=== PATIENT | male | born 1945 | race Caucasian/White ===

== ENCOUNTER → 2016-08-15 | Outpatient (CLI) | payer MEDICARE, OTHER ==
[~2016-08-15] MED LIST: GABA300C5 PO; GABA400C5 PO; HYDR-3583 PO; LORA-373 PO; LORA1TAB12 PO; LORA2TAB7 PO; TRAD5TAB PO; TRAZ100T4 PO
== END ==
LOC: CPRE 09:09
PROVIDERS: ATTEND Neurological Surgery
DX: Z01.810 Encounter for preprocedural cardiovascular examination (principal); Z01.811 Encounter for preprocedural respiratory examination; Z01.812 Encounter for preprocedural laboratory examination

== ENCOUNTER 2016-08-19 15:08 | Inpatient (IN) | payer OTHER, MEDICARE ==
[~2016-08-19] VITALS: Ht 175.3 cm; Wt 73.9 kg
[~2016-08-19 15:08] MED LIST changes: -GABA400C5 PO; -LORA1TAB12 PO; -LORA2TAB7 PO
[2016-08-20] MEDS ORDERED: METOPROLOL TARTRATE 25 MG TAB PO PRN (06:45)
[2016-08-20] MEDS ORDERED: LACTATED RINGER'S 1000 ML IV SCH (06:45)
[2016-08-20] MEDS ORDERED: SODIUM CHLORID 0.9% 500 ML IV SCH (06:45)
[2016-08-20] MEDS ORDERED: INSULIN HUMAN REGULAR 1,000 UNITS/10 ML VIAL SQ PRN (06:45)
[2016-08-20 07:01] VITALS: BP 147/71; PULSE 63; RESP 20; TEMP 98.3; O2SAT 93
[2016-08-20] MEDS ORDERED: GABA400C5 PO (07:16)
[2016-08-20] MEDS ORDERED: LORA2TAB7 PO (07:16)
[2016-08-20] MEDS ORDERED: LORA1TAB12 PO (07:16)
[2016-08-20] MEDS ORDERED: GENTAMICIN SULFATE 80 MG/2 ML VIAL ONE (07:25)
[2016-08-20] MEDS ORDERED: GELFOAM SIZE 100 ONE (07:25)
[2016-08-20] MEDS ORDERED: THROMBIN (TOPICAL) 5,000 UNIT VIAL ONE (07:25)
[2016-08-20] MEDS ORDERED: ARTIFICIAL TEARS OPTH OINT 3.5 APPLIC/3.5 GM TUBO ONE (08:06)
[2016-08-20] MEDS ORDERED: fentaNYL CITRATE 250 MCG/5 ML AMP ONE ×2 (08:06→13:11)
[2016-08-20] MEDS ORDERED: FAMOTIDINE 20 MG/2 ML VIAL ONE (08:06)
[2016-08-20] MEDS ORDERED: MIDAZOLAM HCL 2 MG/2 ML VIAL ONE (08:06)
[2016-08-20] MEDS ORDERED: ACETAMINOPHEN 1000 MG/100 ML VIAL IV ONE (08:06)
[2016-08-20] MEDS ORDERED: HEPARIN SODIUM - SQ 10,000 UNITS/ML VIAL ONE (08:37)
[2016-08-20] MEDS ORDERED: VANCOMYCIN HCL 1000 MG VIAL ONE (08:37)
[2016-08-20] MEDS ORDERED: ceFAZolin 2 GM PREMIX 50 ML ONE (08:38)
[2016-08-20] MEDS ORDERED: ePHEDrine/NS 25 MG/5 ML SYR IV ONE (11:31)
[2016-08-20] MEDS ORDERED: LACTATED RINGER'S 1000 ML INJ 1,000 ML IV ONE (11:31)
[2016-08-20] MEDS ORDERED: SODIUM CHLOR 0.9% 250 ML INJ 250 ML IV ONE (11:31)
[2016-08-20] MEDS ORDERED: SODIUM CHLORID 0.9% 500 ML INJ 500 ML IV ONE (11:31)
[2016-08-20] MEDS ORDERED: PROPOFOL 200 MG/20 ML AMP IV ONE (11:31)
[2016-08-20] MEDS ORDERED: ONDANSETRON HCL 4 MG/2 ML VIAL IV PUSH ONE (11:31)
[2016-08-20] MEDS ORDERED: NALOXONE HCL 0.4 MG/ML AMP IV PRN (12:45)
[2016-08-20] MEDS ORDERED: SODIUM CHLORIDE 0.9% FLUSH 5 ML FLUSH IVF PRN (12:45)
[2016-08-20] MEDS ORDERED: diphenhydrAMINE HCL 50 MG/ML VIAL IV PRN (12:45)
[2016-08-20] MEDS ORDERED: HYDROmorphone HCL PCA 6 MG/30 ML IV SCH (12:45)
[2016-08-20] MEDS ORDERED: MORPHINE SULFATE 4 MG/ML INJ IV PUSH PRN ×2 (12:45)
[2016-08-20] MEDS ORDERED: ACETAMINOPHEN 325 MG TAB PO PRN (12:45)
[2016-08-20] MEDS ORDERED: DO NOT ADM ANY ANTICOAGULANT DRUGS XX PRN (12:53)
--- NOTE | 2016-08-20 12:57 | PD.OP ---
Operative Report Date of Surgery: Aug 20, 2016 Preoperative Diagnosis: Spondyllisthesis L3-4 Postoperative Diagnosis: Spondyllisthesis L3-4 Procedure: L3-4 laminectomy, interbody arthrodhesis using PEEK cage and autologous bone graft, L3-L4 instrumental fixation using transpedicular screws and rods, L3-L4 posterolateral fusion using autologous bone graft and demineralized bone matrix. Microsurgical dissection Anesthesia: general Surgeon: Brian Mccormick Book Or Script Editor(s): Tiffany Onofre Operation and Findings: INDICATIONS FOR THE SURGICAL PROCEDURE Mr. Shah is a 70 year-old male with history of a prior L4-5 and L5-S1 fusion who presented with intractable mechanical back pain and robe evidence of lower extremity radiculopathy. He developed degeneration with severe facet arthropathyu and spondylolisthesis at L3-4, adjacent to his prior fusion. He failed maximum nonsurgical management including multiple modalities of conservative treatment as well as pain management interventions by an interventional pain specialist. A surgical decompression and arthrodhesis were indicated as a last resort The [id number] details of the procedure, indications, alternatives, risks and potential complications were fully discussed with the patient. The patient fully understood. All the questions were answered. No guarantees were given. The patient voiced requesting the procedure and provided informed consents. The patient was offered the alternative of delaying the procedure and continuing with nonsurgical management. DETAILS OF THE SURGICAL PROCEDURE Prior to the procedure, the surgical incision was marked in the preoperative surgical holding room, and the procedure, risks, and potential complications revisited with the patient. Placement of electrodes for intraoperative neurophysiological monitoring was completed. The patient was taken to the operative room, and following induction of general anesthesia, endotracheal intubation was performed. A Tripathi catheter, bilateral LISA hose and sequential compression devices were placed and kept throughout the procedure. The patient was positioned prone, over a Wolfgang table over a bolsters. All pressure in the preoperative surgical holding room points were carefully padded with eggcrate and gel mattress. The eyes were tapped shut after ointment was applied by the anesthesiologist to prevent corneal abrasion. A Alisson hugger was placed over the expossed lower body to maintain control of the core body temperature. The electrophysiological team placed the needles and electrodes in their proper location and baseline SSEP's and EMG potentials were registered. The entrance to each pedicles was marked using a C arm. The lumbar region was prepped and draped in the usual sterile fashion. The surgical procedure was performed in several steps as follow: SURGICAL APPROACH Once the patient was positioned, a localizing cross-table lateral x-ray was performed with a C-arm. Two paramedian small incisions were outlined on the skin approximately 3cm from the midline. The skin incisions were made with a # 10 blade. Small bleeders were controlled with the cautery. The dissection was then carried out into deeper planes and through the thoracolumbar fascia with a Bovie. The intermuscular septum was identified and the muscles were blunted dissected along the septum. The facets and transverse process of L3 and L4 were exposed and the proper anatomical landmarks were identified. A microsurgical self-retaining retractor was placed on the incision, and a localizing lateralizing cross-table x-ray was performed with an instrument underneath a lamina of the lumbar spine. INSTRUMENTAL FIXATION At this point in the procedure, placement of bilateral transpedicular screws was necessary for stabilization of the spine. Initially, the entry point for the screw was selected anatomically at the junction of the facet, with the transverse process, and the pars interarticularis at L3 and L4. This was started using a Giamshetti needle followed by the use of a meyers wire. A tap was used to create the threads for the screws. Finally bilateral transpedicular screws were carefully placed bilaterally at L3 and L4 under fluoroscopic visualization. An appropriate purchase was achieved with all screws. The position of each screw was assessed anatomically with an AP, lateral, oblique Xrays. An intraoperative scan view of the spine was then performed using the iso -centric c-arm. Each screw was then assessed electrophysiologically stimulating each screw with a nerve stimulator. SURGICAL DECOMPRESSION There was significant mass effect with compression of the neural structures. In order to relieve neural compression, it was necessary to perform a decompressive laminectomy, with decompression of the spinal canal and bilateral lateral recesses. Note that the scope of such decompression was significantly more extensive than the minimal exposure necessary to perform an interbody fusion, as there was extreme facet arthropathy with near complete collapse of the disk spaces and severe stenosis cause by the hyperthrophic joint facets. At this point of the procedure the operative microscope was draped in the usual sterile fashion and brought to the field. The rest of the surgical procedure was performed using microdissection technique with the exception of the closure. Under the operating microscope, a decompressive laminectomy was carried out at L3-L4 as follow: The laminae, base of the spinous processes and facets were carefully drilled exposing the ligamentum flavum. The facets were abnormal with severe spondylolisthesis and gross mechanical instability. A disk protusion was compressing the neural structures and exiting nerve roots. A near complete facetectomy was necessary resulting in further instability. The ligamentum flavum appeared hypertrophic. The superior free border of the ligamentum flavum was elevated with a ligament dissector and the ligamentum flavum was removed with a 3 and 4 mm Kerrison forceps. The ligament was very adherent to the dural sac and during the dissection, and extreme care was taken during the dissection. The exiting nerve roots were identified, and a wide foraminotomy was performed with a Kerrison in their trajectory towards the neural foramen. Epidural veins located laterally to the dural sac were coagulated with the bipolar cautery, and then incised using microscissors. Gentle medial retraction of the dural sac allowed me to expose the disc space for the discectomy. Upon completion of the discectomy, an excellent decompression of the neural structures was achieved. Increased motion was noted , which was consistent with mechanical instability. INTERBODY ARTHRODHESIS In order to correct the narrowing of the disk space and maintain distraction of the space, and to achieve a solid interbody fusion, it was necessary the insertion of an interbody device into the disk space. Otherwise, the disk space would collapse, compromising the result of the surgical procedure. At this point of the procedure, the annulus fibrosus of the disk was carefully coagulated with a bipolar cautery and incised using an 11 bladed knife. Then, a microdiscectomy was carried out in a standard fashion using a combination of straight and up-biting pituitary forceps. A reverse angle curette was applied underneath the posterior longitudinal ligament, and used to push the disk fragments into the disk space, so they can be safely removed with a pituitary forceps. Once the discectomy was completed, it was necessary to decorticate the endplates, in order to eliminate the cartilaginous endplate and to expose healthy bone appropriate to perform the interbody fusion. The endplates at L3- L4 were then thoroughly decorticated using increasing size bone ronnie and ring curets, eliminating the cartilaginous fragments from both, the superior and inferior endplates. A disk space distractor was applied to the pedicle screws and gentle distraction was applied. This maneuver was assisted by the use of a disk distractor. Once a thorough preparation of the disk space was achieved, the disk space was irrigated with antibiotic solution, and the interbody fusion was performed by carefully impacting an expandable PPEK cage filled with autologous iliac crest bone graft. The cage was carefully expanded. A solid position of the cage with good purchase was achieved. The position of the cage was assessed anatomically with a probe and radiologically with the C- arm. POSTEROLATERAL FUSION The posterolateral fusion is a critical component to the procedure, to prevent future fatigue and failure of the instrumental fixation. Initially, the transverse processes of the vertebral bodies, lateral surface of the facets and the lateral gutters of the spine were carefully cleaned, eliminating all soft tissue and muscle attachments. The area was then irrigated with a large amount of antibiotic solution. Subsequently, the transverse processes, lateral surface of the facets, and lateral gutters of the spine were thoroughly decorticated using the TPS drill with a 5mm cutting diego, exposing cancellous bone, in preparation for the posterolateral fusion. The incision was again irrigated with antibiotic solution. Then, the posterolateral fusion was then performed by carefully packing the lateral gutters of the spine at L3-L4 with autologous iliac crest bone combined with demineralized bone matrix. I packed as much bone as possible. COMPLETION OF THE INSTRUMENTATION AND CLOSURE The rods were brought to the field, applied to all the screws, and the screw caps were sequentially applied. Compression was performed between the pedicle screws, and final tightening of the screws was completed using a torque wrench. The incision was again thoroughly irrigated with several liters of antibiotic solution, and hemostasis secured with the bipolar cautery. A Valsalva Maneuver performed by the anesthesiologist failed to show any evidence of cerebrospinal fluid leak or bleeding. A 7 mm Wolfgang-Rondon drain was left in the epidural space and externalized through a separate stab incision. The incision was then closed in planes. 0 Vicryl was used in an interrupted fashion to close the thoracolumbar fascia and the superficial fascia. The subcutaneous tissue was then approximated using 3-0 Vicryl in an interrupted fashion. Special care was taken to avoid space. The skin was then closed with 4-0 Vicryl in a running, subcuticular fashion. Dermabond was applied to the skin. Each plane of closure was irrigated with antibiotic solution. At the end of the procedure the sponge, needle and instrument counts were all correct. Estimated blood loss was 100 to 150 cc. No blood transfusion was given. The entire procedure was performed using continuous electrophysiological monitoring of the somatosensorial evoked potentials and EMG. The patient received prophylactic antibiotics. The patient was then extubated and transferred to the recovery room in stable condition. Brian Mccormick MD Aug 20, 2016 12:57
[2016-08-20] MEDS ORDERED: GABAPENTIN 400 MG CAP PO SCH (13:00)
[2016-08-20] MEDS ORDERED: MORPHINE SULFATE 4 MG/ML INJ ONE (13:11)
[2016-08-20] MEDS ORDERED: *morphine SULFATE 8 MG/ML PERIprocedure ONLY ONE ×2 (13:13→14:06)
[2016-08-20] MEDS ORDERED: *MEPERIDINE 25 MG INJ VIAL PERIprocedural Use ONLY ONE (13:18)
[2016-08-20] MEDS: NS + KCL 20 MEQ INJ 1,000 ML IV SCH ×2 (13:35→20:49)
--- NOTE | 2016-08-20 13:35 | RADRPT ---
EXAM DATE/TIME: 08/20/2016 08:53 [facility] COMPARISON: No previous studies available for comparison. INDICATIONS : Stenosis, herniated disk, hardware placement, L3-4. MEDICAL HISTORY : Stenosis lumbar spine. SURGICAL HISTORY : L5-S1 fusion ENCOUNTER: Initial ACUITY: 1 day PAIN SCORE: 0/10 LOCATION: Lumbar spine. FINDINGS: 2 spot fluoroscopic images obtained in the operating room during a procedure demonstrate bilateral pe dicular screws and stabilization hardware at 2 adjacent levels in the inferior lumbar spine and may r epresent L3-L4 or L4-L5. Additionally, there is hardware posteriorly in the sacrum. CONCLUSION: Hardware is present following lumbosacral surgery. Please refer to intraoperative findings for furthe r details. Pato Carvalho MD on August 20, 2016 at 13:32 Board Certified Radiologist. This report was verified electronically.
[2016-08-20] MEDS: PCA - TOTAL MG DILAUDID DELIVERED PER SHIFT SCH ×2 (14:00→22:00)
[2016-08-20] MEDS: GABAPENTIN 300 MG CAP PO SCH ×2 (14:00→17:00)
[2016-08-20] MEDS ORDERED: *diphenhydrAMINE HCL 50 MG/ML VIAL PERIprocedural Use ONLY ONE (14:14)
--- NOTE | 2016-08-20 14:14 | PD.CONS ---
HPI Service [facility] Hospitalists Consult Requested By Dr. Brian Mccormick Reason for Consult Medical Management Primary Care Physician Dr. Vladimir Lucas Diagnoses: History of Present Illness Mr. Shah is a 70 y/o male with diabetes mellitus, CKD, stage 3, HTN, and chronic back pain with history of prior L4-5 and L5-S1 fusion who was admitted to [facility] by Dr. Mccormick for intractable mechanical back pain and evidence of lower extremity radiculopathy as he has developed degeneration with severe facet arthropathy and spondylolisthesis at L3-4, adjacent to his prior fusion. He failed outpt nonsurgical management and was admitted for surgical decompression and arthrodesis. Pt underwent L3-4 laminectomy and fusion on 08/20/16. [facility] Hospitalist team was consulted to help with managing his chronic medical issues. Pt is seen post-operatively in the PACU and is still quite lethargic. Nursing staff reports that he was in significant pain when he woke up from anesthesia and is currently on Dilaudid PHY THERAPIST. His vital signs are stable. Tripathi catheter is in place. Review of Systems ROS Limitations: Clinical Condition Past Family Social History Past Medical History Diabetes mellitus CKD stage 3 AAA Anxiety/Depression Lumbar disc disease with hx of previous L4-S1 fusion Hx of SCCA poorly differentiated in 02/2014 Hyperlipidemia Osteoarthritis ZARIA Past Surgical History L4-S1 Lumbar fusion RUL and RML lobectomies in 04/2014 Right hand surgery after snake bite Right inguinal hernia repair Reported Medications -Lorazepam 2 Mg PO HS -Lorazepam 1 Mg PO DAILY -Hydrocodone-Acetaminophen 10-325 mg Tab PO Q4H PRN --Gabapentin 800 Cap PO TID --Tradjenta 5 Mg PO DAILY --Trazodone 150 Mg PO HS ?Losartan 25mg PO DAILY ? 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 HEENT: Atraumatic. Normocephalic. No temporal or scalp tenderness. No scleral icterus. Airway patent. NECK: Trachea midline, supple, nontender. CARDIO: Regular. RESP: CTA bilaterally. No wheezes, rales, or rhonchi. ABD: +BS, soft, non-tender, nondistended. EXT: Extremities without clubbing, cyanosis, or edema. NEURO: Lethargic, arouses to name but quickly drifts back to sleep. Laboratory Laboratory Tests Test 08/20/16 06:50 Blood Type O POSITIVE Antibody Screen NEGATIVE Blood Bank Comment Imaging Last Impressions Lumbar Spine X-Ray 08/20/16 0000 Signed Impressions: Service Date/Time: Saturday, August 20, 2016 08:53 - CONCLUSION: Hardware is present following lumbosacral surgery. Please refer to intraoperative findings for further details. Pato Carvalho MD Assessment and Plan Problem List: (1) Spondylolisthesis, lumbar region Status: Chronic Plan: - Pt with chronic low back pain and lumbar spondylolisthesis and underwent L3- L4 laminectomy and fusion on 08/20/[address] Mccormick - Post-op pain control per Neurosurgery - IS - PT - Constipation precautions - DVT prophylaxis (2) Diabetes mellitus type 2, noninsulin dependent Status: Chronic Plan: - NovoLog SSI - Accu checks (3) HTN (hypertension) Status: Chronic Plan: - Pt takes Losartan 25mg po daily at home, this will be resumed - Clonidine PRN (4) COPD (chronic obstructive pulmonary disease) Status: Acute Plan: - Duonebs PRN (5) Hx of cancer of lung Status: Acute (6) Tobacco use Status: Acute Assessment and Plan Patient examined. Assessment and plan formulated with Amarilys Cevallos PA-C. I agree with the above. s/p L3/4 lami. will follow. in pacu now. pt lethargic from meds. monitor dm/htn. ssi for now. diet ordered. Amarilys Cevallos Aug 20, 2016 14:13 Nahid Tony MD Aug 20, 2016 16:40
[2016-08-20] MEDS ORDERED: cloNIDine HCL 0.1 MG TAB PO PRN (15:15)
[2016-08-20] MEDS ORDERED: RESP: ALBUTEROL 2.5 MG/IPRATROPIUM 0.5 MG NEB (PRN) NEB (15:30)
[2016-08-20] MEDS ORDERED: HYDR-3583 PO (15:38)
[2016-08-20] MEDS ORDERED: DEXTROSE 50% IN WATER 50 ML VIAL(D50) IV PUSH PRN (15:45)
[2016-08-20] MEDS ORDERED: GLUCAGON 1 MG/ML VIAL OTHER PRN (15:45)
[2016-08-20 16:07] VITALS: BP 143/78; PULSE 69; RESP 17; TEMP 97.7; O2SAT 96
[2016-08-20] MEDS: INSULIN ASPART SUPPLEMENTAL SCALE SQ SCH ×2 (16:59→20:53)
[2016-08-20] MEDS: ceFAZolin 2 GM PREMIX 50 ML IV SCH (17:00)
[2016-08-20 20:30] VITALS: O2SAT 94
[2016-08-20 20:35] VITALS: BP 137/60; PULSE 68; RESP 17; TEMP 97.6; O2SAT 93
[2016-08-20] MEDS: SODIUM CHLORIDE 0.9% FLUSH 5 ML FLUSH IVF SCH (20:48)
[2016-08-20] MEDS ORDERED: traZODone HCL 100 MG TAB PO SCH (21:00)
[2016-08-20] MEDS ORDERED: LORazepam 2 MG TAB PO SCH (21:00)
[2016-08-20 23:50] VITALS: BP 137/53; PULSE 82; RESP 18; TEMP 98.3; O2SAT 92
[2016-08-21] MEDS: ceFAZolin 2 GM PREMIX 50 ML IV SCH ×2 (01:47→08:10)
[2016-08-21] MEDS: ACETAMINOPHEN/HYDROcodone 325 MG/10 MG TAB PO PRN ×2 (02:55→08:12)
[2016-08-21 04:20] VITALS: BP 161/63; PULSE 77; RESP 18; TEMP 98; O2SAT 92
[2016-08-21] MEDS: INSULIN ASPART SUPPLEMENTAL SCALE SQ SCH ×2 (06:17→11:00)
[2016-08-21 06:55] LABS: AUTOMATED NEUTROPHIL # 11.7 TH/MM3 (1.8-7.7); BASOPHIL # 0.1 TH/MM3 (0-0.2); BASOPHIL % 0.4 % (0.0-2.0); HEMATOCRIT 35.2 % (39.0-51.0); HEMO FLAGS DIFF FINAL; LYMPH % 6.5 % (9.0-44.0); LYMPHOCYTE # 0.9 TH/MM3 (1.0-4.8); MEAN CORPUSCULAR HEMOGLOBIN 32.5 PG (27.0-34.0); MEAN CORPUSCULAR HGB CONC 33.2 % (32.0-36.0); MONO % 8.3 % (0.0-8.0); NEUT % 84.8 % (16.0-70.0); PLATELET COUNT 136 TH/MM3 (150-450); RED CELL DISTRIBUTION WIDTH 14.1 % (11.6-17.2); WHITE BLOOD COUNT 13.8 TH/MM3 (4.0-11.0)
[2016-08-21 07:10] LABS: BICARBONATE 28.7 MEQ/L (21.0-32.0); POTASSIUM 4.2 MEQ/L (3.5-5.1)
[2016-08-21 08:00] VITALS: BP 131/55; PULSE 68; RESP 16; TEMP 96.9; O2SAT 96
[2016-08-21] MEDS: GABAPENTIN 300 MG CAP PO SCH ×2 (08:11→13:22)
[2016-08-21] MEDS: NS + KCL 20 MEQ INJ 1,000 ML IV SCH (08:43)
[2016-08-21 08:59] VITALS: O2SAT 93
[2016-08-21] MEDS ORDERED: PANTOPRAZOLE SODIUM 40 MG VIAL IVP SCH (09:00)
[2016-08-21] MEDS ORDERED: LORazepam 1 MG TAB PO SCH (09:00)
[2016-08-21] MEDS: SODIUM CHLORIDE 0.9% FLUSH 5 ML FLUSH IVF SCH (09:00)
[2016-08-21] MEDS ORDERED: LOSARTAN 25 MG TAB PO SCH (09:00)
--- NOTE | 2016-08-21 10:41 | HHI.PR ---
Subjective Remarks pt eager for d/c today. says he need to take care of his 95yo mother. Objective Vitals heart reg lung cta abd s/nt ext no edema mcgee Vital Signs Date Time Temp Pulse Resp B/P Pulse Ox O2 Delivery O2 Flow Rate FiO2 08/21/16 08:59 93 Nasal Cannula 3.00 08/21/16 08:00 96.9 68 16 131/55 96 08/21/16 04:20 98.0 77 18 161/63 92 08/20/16 23:50 98.3 82 18 137/53 92 08/20/16 20:35 97.6 68 17 137/60 93 08/20/16 20:30 94 Nasal Cannula 3.00 08/20/16 18:57 Nasal Cannula 3.00 08/20/16 16:07 97.7 69 17 143/78 96 08/20/16 15:45 97.8 71 16 140/65 95 Nasal Cannula 3 08/20/16 15:00 73 15 139/68 94 Nasal Cannula 3 08/20/16 14:30 97.7 77 15 143/70 93 Nasal Cannula 3 08/20/16 14:18 15 08/20/16 14:15 81 15 142/72 92 Nasal Cannula 3 08/20/16 14:11 15 08/20/16 14:05 15 08/20/16 14:00 82 15 144/78 92 Nasal Cannula 3 08/20/16 13:45 83 15 145/84 91 Nasal Cannula 3 08/20/16 13:35 14 08/20/16 13:30 87 15 148/76 95 Nasal Cannula 4 150/63 08/20/16 13:18 15 08/20/16 13:15 88 15 156/88 95 Nasal Cannula 4 151/67 08/20/16 13:00 84 15 151/81 93 Nasal Cannula 4 152/69 08/20/16 12:52 97.7 86 18 154/83 94 Nasal Cannula 4 156/65 08/20/16 08/20/16 08/21/16 15:00 23:00 07:00 Intake Total 1600 ml 1381 ml 1004 ml Output Total 450 ml 1370 ml 430 ml Balance 1150 ml 11 ml 574 ml Intake Oral 240 ml 240 ml IV Total 1141 ml 764 ml Other 1600 ml Output Urine Total 350 ml 1300 ml 400 ml Drainage Total 70 ml 30 ml Estimated Blood Loss 100 ml # Bowel Movements 0 0 Result Diagram: 08/21/16 0611 08/21/16 0611 Imaging Last Impressions Lumbar Spine X-Ray 08/20/16 0000 Signed Impressions: Service Date/Time: Saturday, August 20, 2016 08:53 - CONCLUSION: Hardware is present following lumbosacral surgery. Please refer to intraoperative findings for further details. Pato Carvalho MD A/P Problem List: (1) Spondylolisthesis, lumbar region Status: Chronic Plan: - Pt with chronic low back pain and lumbar spondylolisthesis and underwent L3- L4 laminectomy and fusion on 08/20/[address] Mccormick - Post-op pain control per Neurosurgery - IS - PT - Constipation precautions - DVT prophylaxis pt demanding for d/c home today..says he needs to take care of his mother. currently has mcgee and GARY. remove mcgee and try ambulation per NSG...then d/c when ok with nsg. medically ok anytime. (2) Diabetes mellitus type 2, noninsulin dependent Status: Chronic Plan: - NovoLog SSI - Accu checks (3) HTN (hypertension) Status: Chronic Plan: - Pt takes Losartan 25mg po daily at home, this will be resumed - Clonidine PRN (4) COPD (chronic obstructive pulmonary disease) Status: Acute Plan: - Duonebs PRN (5) Hx of cancer of lung Status: Acute (6) Tobacco use Status: Acute Nahid Tony MD Aug 21, 2016 10:41
--- NOTE | 2016-08-21 11:03 | HHI.NSPN ---
(Venus Short) Note Status Status: Progress Note (Venus Short) Interval History Interval History Mr. Shah underwent a L3-4 laminectomy, interbody arthrodesis using PEEK cage and autologous bone graft, L3-L4 instrumental fixation using transpedicular screws and rods on 08/20/16. 08/21: reports surgical pain with movement. otherwise says he is doing ok. denies any focal weakness, chest pain, difficulty breathing. (Venus Short) Labs, Micro, & Vital Signs Results Date Time Temp Pulse Resp B/P Pulse Ox O2 Delivery O2 Flow Rate FiO2 08/21/16 08:59 93 Nasal Cannula 3.00 08/21/16 08:00 96.9 68 16 131/55 96 08/21/16 04:20 98.0 77 18 161/63 92 08/20/16 23:50 98.3 82 18 137/53 92 08/20/16 20:35 97.6 68 17 137/60 93 08/20/16 20:30 94 Nasal Cannula 3.00 08/20/16 18:57 Nasal Cannula 3.00 08/20/16 16:07 97.7 69 17 143/78 96 08/20/16 15:45 97.8 71 16 140/65 95 Nasal Cannula 3 08/20/16 15:00 73 15 139/68 94 Nasal Cannula 3 08/20/16 14:30 97.7 77 15 143/70 93 Nasal Cannula 3 08/20/16 14:18 15 08/20/16 14:15 81 15 142/72 92 Nasal Cannula 3 08/20/16 14:11 15 08/20/16 14:05 15 08/20/16 14:00 82 15 144/78 92 Nasal Cannula 3 08/20/16 13:45 83 15 145/84 91 Nasal Cannula 3 08/20/16 13:35 14 08/20/16 13:30 87 15 148/76 95 Nasal Cannula 4 150/63 08/20/16 13:18 15 08/20/16 13:15 88 15 156/88 95 Nasal Cannula 4 151/67 08/20/16 13:00 84 15 151/81 93 Nasal Cannula 4 152/69 08/20/16 12:52 97.7 86 18 154/83 94 Nasal Cannula 4 156/65 08/21/16 07:00 Intake Total 3985 ml Output Total 2250 ml Balance 1735 ml Constitutional Vital Signs Date Time Temp Pulse Resp B/P Pulse Ox O2 Delivery O2 Flow Rate FiO2 08/21/16 08:59 93 Nasal Cannula 3.00 08/21/16 08:00 96.9 68 16 131/55 96 08/21/16 04:20 98.0 77 18 161/63 92 08/20/16 23:50 98.3 82 18 137/53 92 08/20/16 20:35 97.6 68 17 137/60 93 08/20/16 20:30 94 Nasal Cannula 3.00 08/20/16 18:57 Nasal Cannula 3.00 08/20/16 16:07 97.7 69 17 143/78 96 08/20/16 15:45 97.8 71 16 140/65 95 Nasal Cannula 3 08/20/16 15:00 73 15 139/68 94 Nasal Cannula 3 08/20/16 14:30 97.7 77 15 143/70 93 Nasal Cannula 3 08/20/16 14:18 15 08/20/16 14:15 81 15 142/72 92 Nasal Cannula 3 08/20/16 14:11 15 08/20/16 14:05 15 08/20/16 14:00 82 15 144/78 92 Nasal Cannula 3 08/20/16 13:45 83 15 145/84 91 Nasal Cannula 3 08/20/16 13:35 14 08/20/16 13:30 87 15 148/76 95 Nasal Cannula 4 150/63 08/20/16 13:18 15 08/20/16 13:15 88 15 156/88 95 Nasal Cannula 4 151/67 08/20/16 13:00 84 15 151/81 93 Nasal Cannula 4 152/69 08/20/16 12:52 97.7 86 18 154/83 94 Nasal Cannula 4 156/65 08/21/16 07:00 Intake Total 3985 ml Output Total 2250 ml Balance 1735 ml (Venus Short) Review of Systems/Exam Exam Mr. Shah is alert and oriented. Speech is fluent. Follows commands well. GARY drain with minimal output. Cranial nerve examination: pupils to be equal, round and reactive to light. Facial motor are symmetrical. Motor: moves all major muscle groups of upper and lower extremities well. Respiratory: clear, nonlabored (Venus Short) Medications Current Medications Current Medications Medications (Trade) Dose Ordered Sig/Leandro Route PRN Reason Start Time Stop Time Status Last Admin Dose Admin Potassium Chloride/Sodium Chloride (NS + KCl 20 Meq Inj) 1,000 ml @ 100 mls/hr Q10H IV 08/20/16 12:43 08/20/16 20:49 IV Flush (NS Flush) 2 ml UNSCH PRN IVF FLUSH AFTER USING IV ACCESS 08/20/16 12:45 08/20/16 17:01 IV Flush (NS Flush) 2 ml BID IVF 08/20/16 21:00 08/20/16 20:48 Pantoprazole Sodium (Protonix Inj) 40 mg DAILY IVP 08/21/16 09:00 Morphine Sulfate (Morphine Inj) 2 mg Q2H PRN IV PUSH PAIN SCALE 1 TO 6 08/20/16 12:45 Morphine Sulfate (Morphine Inj) 4 mg Q2H PRN IV PUSH PAIN SCALE 7 TO 10 08/20/16 12:45 Acetaminophen (Tylenol) 650 mg Q4H PRN PO TEMPERATURE > 101.5 F 08/20/16 12:45 Acetaminophen/ Hydrocodone Bitart ([place]enton 10-325 Mg) 1 tab Q4H PRN PO PAIN SCALE 1-10 if able to po 08/20/16 12:45 08/21/16 08:12 Lorazepam (Ativan) 1 mg DAILY PO 08/21/16 09:00 08/21/16 08:11 Lorazepam (Ativan) 2 mg HS PO 08/20/16 21:00 08/20/16 20:48 Trazodone HCl (Desyrel) 100 mg HS PO 08/20/16 21:00 08/20/16 20:48 Miscellaneous Information ALL NURSING DEPARTME... UNSCH PRN XX SEE LABEL COMMENTS 08/20/16 12:53 08/21/16 12:52 Gabapentin (Neurontin) 600 mg TID PO 08/20/16 14:00 08/21/16 08:11 Losartan Potassium (Cozaar) 25 mg DAILY PO 08/21/16 09:00 08/21/16 08:10 Clonidine (Catapres) 0.1 mg Q6H PRN PO SBP> OR = 180, DBP> OR = 100 08/20/16 15:15 Dextrose (D50w (Vial) Inj) 25 ml UNSCH PRN IV PUSH HYPOGLYCEMIA - SEE COMMENTS 08/20/16 15:45 Glucagon (Glucagon Inj) 1 mg UNSCH PRN OTHER HYPOGLYCEMIA-SEE COMMENTS 08/20/16 15:45 (Venus Short) Medical Decision Making MDM Remarks 70 y/o male s/p L3-4 laminectomy, interbody arthrodesis using PEEK cage and autologous bone graft, L3-L4 instrumental fixation using transpedicular screws and rods on 08/20/16 (Venus Short) Plan Plan Remarks dc mcgee catheter PT, OOB to ambulate TLSO when out of bed cont IS every hour following rounds, nursing called to report patient requesting discharge home today, discussed with Dr. Mccormick, will clear to discharge later today once patient is ambulatory dc GARY drain prior to discharge dc with [facility]HC (Venus Short) Attending Statement The exam, history, and the medical decision-making described in the above note were completed with the assistance of the mid-level provider. I reviewed and agree with the findings presented. I attest that I had a [id number] encounter with the patient on the same day, and personally performed and documented my assessment and findings in the medical record. (Brian Mccormick MD) Venus Short Aug 21, 2016 11:03 Brian Mccormick MD Aug 23, 2016 15:36
[2016-08-21 12:00] VITALS: BP 121/57; PULSE 75; RESP 16; TEMP 98.9; O2SAT 94
--- NOTE | 2016-08-21 13:42 | HHI.FF ---
Face to Face Verification Diagnosis: (1) Status post lumbar spinal fusion Physical Therapy Order: Improve ambulation Home Health Nursing Order: Signs/symptoms of disease process Wound care and dressing changes I have seen patient Jorge Shah on 08/21/16. My clinical findings support the need for the requested home health care services because: Deconditioned w/ increased weakness I certify that my clinical findings support that this patient is homebound because: Post-op weakness Venus Short Aug 21, 2016 13:42
== END 2016-08-21 15:19 | disposition home or self-care (01) | DRG 460 ==
LOC: HSDI 08-20 06:17 → N06B 08-20 16:02
PROVIDERS: ADMIT Neurological Surgery; ATTEND Neurological Surgery
PROC: 0ST20ZZ Resection of Lumbar Vertebral Disc, Open Approach (ICD-10-PCS; 2016-08-20)
PROC: 0SG00A1 (ICD-10-PCS; principal; 2016-08-20 08:33)
DX: M43.16 Spondylolisthesis, lumbar region (principal); E11.22 Type 2 diabetes mellitus with diabetic chronic kidney disease; J44.9 Chronic obstructive pulmonary disease, unspecified; N18.3 Chronic kidney disease, stage 3 (moderate); I12.9 Hypertensive chronic kidney disease with stage 1 through stage 4 chronic kidney disease, or unspecified chronic kidney disease; G89.29 Other chronic pain; E78.5 Hyperlipidemia, unspecified; G47.33 Obstructive sleep apnea (adult) (pediatric); M19.90 Unspecified osteoarthritis, unspecified site; I71.4 Abdominal aortic aneurysm, without rupture; F32.9 Major depressive disorder, single episode, unspecified; F41.9 Anxiety disorder, unspecified; F17.210 Nicotine dependence, cigarettes, uncomplicated; Z98.1 Arthrodesis status; Z85.118 Personal history of other malignant neoplasm of bronchus and lung
CPT/HCPCS: 72100; 76000; 80048; 82948; 85025; 86850; 86900; 86901; 94150; C1713; J0131; J0690; J1170; J1200; J1580; J1644; J1815; J2175; J2250; J2270; J2405; J3010; J3370; J3480; J7040; J7050; J7120; L0200; L0484

== ENCOUNTER 2017-05-27 11:00 | Inpatient (IN) | payer MEDICARE, OTHER ==
[~2017-05-27] VITALS: Ht 175.3 cm; Wt 65.6 kg
[~2017-05-27 11:00] MED LIST changes: +ATOR20TA15 PO; -GABA300C5 PO; -HYDR-3583 PO; -LORA-373 PO; +PANT40TA3 PO; -TRAD5TAB PO; -TRAZ100T4 PO
[2017-07-25] MEDS ORDERED: BACL10TA PO (14:57)
[2017-07-25] MEDS ORDERED: GABA400C5 PO ×2 (14:57)
[2017-07-25] MEDS ORDERED: ASPI81TA23 PO (14:57)
[2017-07-25] MEDS ORDERED: HYDR-3583 PO (14:57)
[2017-07-25] MEDS ORDERED: LORA1TAB12 PO (14:57)
[2017-07-25] MEDS ORDERED: COZA25TA PO (15:04)
[2017-10-08] MEDS ORDERED: HYDR-3583 PO (15:44)
[2017-10-10] VITALS (7 sets, daily range): BP systolic 158–169; BP diastolic 76–78; PULSE 76–92; RESP 16; TEMP 97.9–98.9; O2SAT 98–100
[2017-10-10] MEDS ORDERED: SODIUM CHLORID 0.9% 500 ML INJ 500 ML IV ONE (12:00)
[2017-10-10] MEDS ORDERED: LIDOCAINE HCL 1% PF 5 ML SYRINGE OTHER ONE (12:00)
[2017-10-10] MEDS ORDERED: GLYCOPYRROLATE 1 MG/5 ML SYRINGE IV PUSH ONE (12:00)
[2017-10-10] MEDS ORDERED: ROCURONIUM INJ 50 MG/5 ML SYRINGE IV PUSH ONE (12:00)
[2017-10-10] MEDS ORDERED: PROPOFOL 200 MG/20 ML AMP IV ONE (12:00)
[2017-10-10] MEDS ORDERED: DEXAMETHASONE SOD PHOS 4 MG/ML VIAL IV ONE (12:00)
[2017-10-10] MEDS ORDERED: NORMOSOL R INJ 1,000 ML IV ONE (12:00)
[2017-10-10] MEDS ORDERED: NEOSTIGMINE 5 MG/5 ML SYRINGE IV PUSH ONE (12:00)
[2017-10-10] MEDS ORDERED: ePHEDrine/NS 25 MG/5 ML SYRINGE IV ONE (12:00)
[2017-10-10] MEDS ORDERED: ONDANSETRON HCL 4 MG/2 ML VIAL IV ONE (12:00)
[2017-10-10] MEDS ORDERED: LACTATED RINGER'S 1000 ML IV PRN (12:15)
[2017-10-10] MEDS ORDERED: CHLORHEXIDINE GLUCONATE 2 % 1 PACK (2 CLOTHS) TOPICAL PRN (12:15)
[2017-10-10] MEDS ORDERED: METOPROLOL TARTRATE 25 MG TAB PO PRN (12:15)
[2017-10-10] MEDS ORDERED: POVIDONE IODINE 5% (ANTISEPSIS KIT) 4 APPLICATIONS EACH NARE PRN (12:15)
[2017-10-10] MEDS ORDERED: ceFAZolin 2 GM/DEX PREMIX 50 ML IV SCH (12:15)
[2017-10-10] MEDS ORDERED: SODIUM CHLORID 0.9% 500 ML IV PRN (12:15)
[2017-10-10 13:02] LABS: AUTOMATED NEUTROPHIL # 2.8 TH/MM3 (1.8-7.7); BASOPHIL # 0.1 TH/MM3 (0-0.2); BASOPHIL % 2.6 % (0.0-2.0); EOSINOPHIL # 0.2 TH/MM3 (0-0.4); EOSINOPHIL % 4.4 % (0.0-4.0); HEMATOCRIT 37.2 % (39.0-51.0); HEMOGLOBIN 12.6 GM/DL (13.0-17.0); LYMPH % 20.6 % (9.0-44.0); LYMPHOCYTE # 0.9 TH/MM3 (1.0-4.8); MEAN CELL VOLUME 98.3 FL (80.0-100.0); MEAN CORPUSCULAR HEMOGLOBIN 33.3 PG (27.0-34.0); MEAN CORPUSCULAR HGB CONC 33.8 % (32.0-36.0); MEAN PLATELET VOLUME 9.8 FL (7.0-11.0); MONOCYTE # 0.4 TH/MM3 (0-0.9); NEUT % 62.4 % (16.0-70.0); PLATELET COUNT 117 TH/MM3 (150-450); RED BLOOD COUNT 3.78 MIL/MM3 (4.50-5.90); RED CELL DISTRIBUTION WIDTH 15.6 % (11.6-17.2); WHITE BLOOD COUNT 4.4 TH/MM3 (4.0-11.0)
[2017-10-10 13:09] LABS: PROTHROMBIN TIME - PATIENT 10.4 SEC (9.8-11.6)
[2017-10-10 13:16] LABS: BICARBONATE 33.2 MEQ/L (21.0-32.0); CALCIUM 8.8 MG/DL (8.5-10.1); CREATININE 1.39 MG/DL (0.60-1.30)
[2017-10-10] MEDS ORDERED: PROTAMINE SULFATE 50 MG/5 ML VIAL ONE (13:32)
[2017-10-10] MEDS ORDERED: HEPARIN SODIUM - IV 10,000 UNITS/10 ML VIAL ONE (13:32)
[2017-10-10] MEDS ORDERED: BUPIVACAINE/EPINEPHRINE 0.5% PF 30 ML VIAL ONE (13:32)
[2017-10-10] MEDS ORDERED: HEPARIN SODIUM - SQ 10,000 UNITS/ML VIAL ONE (13:32)
[2017-10-10] MEDS ORDERED: hydrALAZINE HCL 20 MG/ML VIAL IV PRN (16:00)
[2017-10-10] MEDS ORDERED: hydrALAZINE HCL 20 MG/ML VIAL IV ONE (16:00)
[2017-10-10] MEDS ORDERED: DO NOT ADM ANY ANTICOAGULANT DRUGS PRN (16:45)
[2017-10-10] MEDS ORDERED: hydrALAZINE HCL 20 MG/ML VIAL ONE (16:52)
[2017-10-10] MEDS ORDERED: *morphine SULFATE 4 MG/ML PERIprocedure ONLY ONE (17:33)
--- NOTE | 2017-10-10 17:49 | MP ---
cc: Marlon Shah MD DATE OF OPERATION: 10/10/2017 DATE OF PROCEDURE: 10/10/2017 PREOPERATIVE DIAGNOSIS: Infrarenal abdominal aortic aneurysm. POSTOPERATIVE DIAGNOSIS: Infrarenal abdominal aortic aneurysm. OPERATIVE PROCEDURE: Percutaneous endovascular aneurysm repair. SURGEON: Marlon Shah MD DAIRY MANAGEMENT SPECIALIST: DEEP Min ANESTHESIA: General endotracheal. DESCRIPTION OF PROCEDURE: With the patient in the supine position and under general endotracheal anesthesia, the abdomen, both groins and thighs were prepped with Betadine and draped in a sterile fashion. Appropriate IV antibiotic prophylaxis was administered. Following a protocol timeout, the skin and subcutaneous tissue overlying and surrounding the proposed common femoral access sites was preemptively infiltrated with 0.5% Marcaine with epinephrine. Utilizing ultrasound guidance, the right and left mid common femoral arteries were accessed identically. Under ultrasonic guidance, 18-gauge needles were inserted into the common femoral lumens and J-wires advanced under fluoroscopic guidance into the iliac arteries. A 7-Armenian hemostatic sheaths were deployed over the J-wires. The J-wires were exchanged for angled Glidewires, which were advanced into the suprarenal aorta. Perclose devices were prepositioned at the 10 and 2 o'clock positions. The 7-Armenian sheaths were then exchanged for 12-Armenian hemostatic sheath on the right and 18-gauge hemostatic sheath on the left. The patient was systemically heparinized with 5000 units and ACT measured 315. A marker pigtail catheter was positioned within the abdominal aorta immediately cephalad to the renal arteries. Aortogram accurately delineated the origin of both renal arteries. The main body endoprosthesis was delivered via the left femoral 18-Armenian sheath and prepositioned immediately distal to the renal arteries and initial deployment completed. The contralateral gate was engaged with an angled glide Berenstein catheter combination. A compliant balloon was inflated within the endoprosthetic lumen to ensure intraluminal localization, followed by placement of a marker pigtail catheter, retrograde injection of the left iliac sheath to allow identification of the iliac bifurcation and selection of appropriate contralateral limb. The contralateral limb was placed and deployed. The main body endoprosthesis deployment was completed. The entire endoprosthesis was then gently balloon dilated with a compliant balloon ensuring adequate sealing at the aortic and iliac seal zones. Completion angiogram revealed a secure repair with no technical defects or evidence of endoleak. The femoral sheaths were removed and hemostasis achieved with the prepositioned Perclose devices. Palpable pedal pulses with robust Doppler flow was confirmed. Heparin was reversed with 20 mg of protamine. The patient returned to postanesthesia in stable condition, having tolerated the procedure well. MD MICHELLE Christiansen/МАРИНА , 05:27 PM , 05:49 PM
[2017-10-10] MEDS ORDERED: POTASSIUM CHLOR 20 MEQ 100 ML x 2 BAGS IV PRN (18:30)
[2017-10-10] MEDS ORDERED: POTASSIUM PHOSPHATE 21 MMOL/NS 250 ML IV PRN ×2 (18:30)
[2017-10-10] MEDS ORDERED: LACTATED RINGER'S 500 ML INJ IV SCH (18:30)
[2017-10-10] MEDS ORDERED: MAGNESIUM SULFATE 1 GM/100 ML IV PRN (18:30)
[2017-10-10] MEDS ORDERED: POTASSIUM CHLOR 20 MEQ/100 ML x 1 BAG IV PRN (18:30)
[2017-10-10] MEDS ORDERED: ONDANSETRON HCL 4 MG/2 ML VIAL IV PUSH PRN (18:30)
[2017-10-10] MEDS ORDERED: SODIUM CHLORIDE 0.9% FLUSH 10 ML FLUSH IV FLUSH PRN (18:30)
[2017-10-10] MEDS: ACETAMINOPHEN/HYDROcodone 325 MG/10 MG TAB PO PRN (19:18)
[2017-10-10] MEDS: LORazepam 2 MG TAB PO PRN (20:12)
[2017-10-10] MEDS: SODIUM CHLORIDE 0.9% FLUSH 10 ML FLUSH IV FLUSH SCH (20:14)
[2017-10-10] MEDS ORDERED: ATORVASTATIN 20 MG TAB PO SCH (21:00)
[2017-10-10] MEDS ORDERED: GABAPENTIN 400 MG CAP PO SCH (21:00)
--- NOTE | 2017-10-10 23:41 | EKG ---
Date Performed: 10/10/2017 Time Performed: 12:21:19 PTAGE: 72 years EKG: SINUS BRADYCARDIA MINIMAL VOLTAGE CRITERIA FOR LVH, CONSIDER NORMAL VARIANT BORDERLINE ECG NO PREVIOUS TRACING DOCTOR: Bharat Obregon Interpretating Date/Time 10/10/2017 23:40:00
[2017-10-11] VITALS (22 sets, daily range): BP systolic 126–150; BP diastolic 70–80; PULSE 58–92; RESP 18; TEMP 98.1–98.6; O2SAT 94–97
[2017-10-11] MEDS: ACETAMINOPHEN/HYDROcodone 325 MG/10 MG TAB PO PRN (05:57)
[2017-10-11] MEDS: LORazepam 2 MG TAB PO PRN (08:22)
[2017-10-11] MEDS: BACLOFEN 10 MG TAB PO SCH ×2 (08:22→13:42)
[2017-10-11] MEDS: SODIUM CHLORIDE 0.9% FLUSH 10 ML FLUSH IV FLUSH SCH (08:23)
[2017-10-11] MEDS ORDERED: GABAPENTIN 400 MG CAP PO SCH ×2 (09:00→21:00)
[2017-10-11] MEDS ORDERED: ASPIRIN EC 81 MG TABEC PO SCH ×2 (09:00)
[2017-10-11] MEDS ORDERED: LOSARTAN 25 MG TAB PO SCH (09:00)
[2017-10-11] MEDS ORDERED: PANTOPRAZOLE SOD 40 MG DELAYED RELEASE TAB PO SCH (09:00)
--- NOTE | 2017-10-12 10:54 | PD.CAR.PN ---
CVT Progress Note Objective: Vital Signs Date Time Temp Pulse Resp B/P (MAP) Pulse Ox O2 Delivery O2 Flow Rate FiO2 10/11/17 17:28 95 21 10/11/17 16:01 58 10/11/17 15:15 98.6 89 18 139/75 (96) 95 10/11/17 15:00 80 10/11/17 14:00 60 10/11/17 13:00 66 10/11/17 12:01 64 10/11/17 11:38 95 10/11/17 11:30 98.4 91 18 131/73 (92) 95 10/11/17 11:00 92 Result Diagram: 10/10/17 1235 10/10/17 1235 Rakan Jc MD Oct 12, 2017 10:54
== END 2017-10-11 18:03 | disposition home or self-care (01) | DRG 269 ==
LOC: HSDI 10-10 11:27 → HCIS 10-10 17:44
PROVIDERS: ADMIT Surgery Vascular Surgery; ATTEND Surgery Vascular Surgery
PROC: 04V03DZ Restriction of Abdominal Aorta with Intraluminal Device, Percutaneous Approach (ICD-10-PCS; principal; 2017-10-10 14:06)
DX: I71.4 Abdominal aortic aneurysm, without rupture (principal)
CPT/HCPCS: 75630; 80048; 85025; 85610; 85730; 86850; 86900; 86901; 93005; C1725; C1769; J0360; J0690; J1100; J1644; J2270; J2405; J2710; J2720; J3010; J7040; J7120